=== PATIENT | male | born 1990 ===

== ENCOUNTER 2017-08-05 21:46 | Emergency (ER) | payer OTHER ==
[~2017-08-05] VITALS: Ht 180.3 cm; Wt 83.9 kg
[2017-08-05] MEDS ORDERED: TDAP DIPH,PERTUSS,TET VAC/PF 0.5 ML DISP.SYRIN IM ONE ×2 (22:30→22:53)
[2017-08-05] MEDS ORDERED: LIDOCAINE HCL 2% 20 ML VIAL TP ONE (22:30)
--- NOTE | 2017-08-05 22:32 | NUR ---
SUTURE SET AT BEDSIDE
--- NOTE | 2017-08-05 22:36 | NUR ---
XRAY AT BEDSIDE
--- NOTE | 2017-08-05 23:08 | NUR ---
ER MD AT BEDSIDE FOR SUTURE PLACEMENT
[2017-08-05 23:18] VITALS: BP 131/77
--- NOTE | 2017-08-05 23:18 | NUR ---
Patient discharged to home in stable conditon. Written and verbal after care instructions given. Patient verbalizes understanding of instructions. Abulated from ER with stable gait. All belongings with patient.
== END 2017-08-05 23:22 | disposition home or self-care (01) ==
LOC: ER 21:59
DX: S61.011A Laceration without foreign body of right thumb without damage to nail, initial encounter (principal); J45.909 Unspecified asthma, uncomplicated; W25.XXXA Contact with sharp glass, initial encounter; Y93.89 Activity, other specified; Y92.511 Restaurant or cafe as the place of occurrence of the external cause; Y99.9 Unspecified external cause status
CPT/HCPCS: 12001; 73140; 90471; 90715; 99284; A4663